=== PATIENT | male | born 1955 | race Caucasian/White ===

== ENCOUNTER → 2018-04-02 | Outpatient (CLI) | payer BC ==
[2018-04-02] MEDS: REGADENOSON 0.4 MG/5 ML DISP.SYRIN. IV (10:00)
== END | disposition home or self-care (01) ==
LOC: NM 08:33
DX: I25.10 Atherosclerotic heart disease of native coronary artery without angina pectoris (principal); E78.00 Pure hypercholesterolemia, unspecified; Z87.891 Personal history of nicotine dependence
CPT/HCPCS: 78452; 93017; 96374; 96375; 96376; A9500; J2785

== ENCOUNTER 2018-05-30 08:04 | Emergency (ER) | payer BC ==
[2018-05-30 08:27] LABS: ADD MAN DIFF? NO
[2018-05-30] MEDS: FAMOTIDINE 20 MG/2 ML VIAL IVP (08:32)
[2018-05-30 08:33] LABS: BASO # 0.1 x10^3/uL (0.0-0.2); BASO % 1 % (0-3); EOS # 0.2 x10^3/uL (0.0-0.7); EOS % 2 % (0-3); HEMATOCRIT 43.6 % (39.0-53.0); HEMOGLOBIN 15.8 g/dL (13.0-17.5); LYMPH # 2.8 x10^3/uL (1.0-4.8); LYMPH % 32 % (24-48); MEAN CORPUSCULAR HEMOGLOBIN 33 pg (25-35); MEAN CORPUSCULAR HGB CONC 36 g/dL (31-37); MEAN CORPUSCULAR VOLUME 91 fL (79-100); MONO # 0.6 x10^3/uL (0.0-1.1); MONO % 7 % (0-9); NEUT # 5.2 x10^3uL (1.8-7.7); NEUT % 58 % (31-73); PLATELET COUNT 234 x10^3/uL (140-400); RED CELL DISTRIBUTION WIDTH 12.4 % (11.5-14.5); WHITE BLOOD COUNT 8.9 x10^3/uL (4.0-11.0)
[2018-05-30] MEDS: methylPREDNISolone SOD SUCC PF 125 MG/2 ML VIAL. IV (08:36)
[2018-05-30] MEDS: diphenhydrAMINE 50 MG/ML VIAL IVP (08:39)
[2018-05-30 08:47] LABS: ANION GAP 8 (6-14); BLOOD UREA NITROGEN 16 mg/dL (8-26); BUN/CREATININE RATIO 16 (6-20); CALCIUM 8.5 mg/dL (8.5-10.1); CARBON DIOXIDE 25 mmol/L (21-32); CHLORIDE 101 mmol/L (98-107); GLUCOSE 102 mg/dL (70-99); POTASSIUM 4.4 mmol/L (3.5-5.1); SODIUM 134 mmol/L (136-145)
[2018-05-30 08:53] LABS: ALBUMIN 3.9 g/dL (3.4-5.0); ALBUMIN/GLOBULIN RATIO 1.1 (1.0-1.7); ALK PHOS 49 U/L (46-116); ALT (SGPT) 12 U/L (16-63); AST (SGOT) 14 U/L (15-37); TOTAL BILIRUBIN 0.4 mg/dL (0.2-1.0); TOTAL PROTEIN 7.5 g/dL (6.4-8.2)
== END 2018-05-30 10:00 | disposition home or self-care (01) ==
LOC: ER 10:00
DX: T78.49XA Other allergy, initial encounter (principal); R22.31 Localized swelling, mass and lump, right upper limb; F41.9 Anxiety disorder, unspecified; F32.9 Major depressive disorder, single episode, unspecified; Z91.09 Other allergy status, other than to drugs and biological substances; W57.XXXA Bitten or stung by nonvenomous insect and other nonvenomous arthropods, initial encounter
CPT/HCPCS: 36415; 80053; 85025; 96374; 96375; 99284; J1200; J2930; S0028

== ENCOUNTER → 2020-08-11 | Outpatient (CLI) | payer BC ==
[2018-05-30 10:00] VITALS: BP 158/85
[~2020-08-11] MED LIST: ALPR0.5T6 PO; ASPI325T8 PO; ATOR40TA59 PO; CITA20TA6 PO; PRAS10TA9 PO; PRED-220 PO; REGADENOSON 0.4 MG/5 ML DISP.SYRIN. IV ONE
--- NOTE | 2020-08-11 14:23 | RAD ---
MR#: [id number] Date of Study: 08/11/2020 Ordering Physician: YULISSA COATS, Referring Physician: MERCY PAGE Tech: KAYLAN Casanova APPROVED REPORT Test Type: Pharmacological Stress Nurse/Tech: Maura Loja R.N. Test Indications: cad Cardiac History: PR, 2 stents, smoker Medications: see ehr Medical History: see ehr Resting ECG: SR Resting Heart Rate: 66 bpm Resting Blood Pressure: 150/89mmHg Pretest Chest Pain: No chest pain Nurse/Tech Notes lungs cta, heart tones regular Consent: The procedure was explained to the patient in lay terms. Informed consent was witnessed. Julius eout was entered into [employer]. History and Stress Test performed by LILIA Gomes, DEEPIKA (R) (N) Pharm. Details Pharmacologic stress testing was performed using 0.4mg per 5ml of regadenoson given intravenously ove r 7-10 seconds. Stress Symptoms No chest pain or symptoms. POST EXERCISE Reason for Termination: Infusion complete Target HR: No Max HR: 87 bpm Max Blood Pressure: 141/88mmHg Chest Pain: No. Arrhythmia: No. ST Change: No. INTERPRETATION Stress EKG Conclusion: Baseline EKG showed sinus rhythm. No ischemic changes at peak stress. No arr hythmias. Imaging Protocol IMAGE PROTOCOL: Rest Tc-99m/stress Tc-99m 1 day Rest: Stress: Viability: Radiopharm.Tc99m NfkihdfxqEk97i Sestamibi Hwey27sXy 33mCi Duration 15min. 10min. Img Date 08/11/2020 08/11/2020 Inj-Img Kdow80bbs. 60min. Rest Admin Site:IV - Right AntecubitalAdministrator:LILIA Gomes ARRT (R)(N) Stress Admin Site: IV - Right AntecubitalAdministrator: LILIA Gomes, ARRT (R)(N) STRESS DATA End Diast. Vol.105.0mlAv. Heart Rate73.0bpm End Syst. Vol.16.0mlCO Index BSA0.0L/min Myocardial Kafq340.0gEject. Gidgbwyh30.0% Stress Rates Pk. Fill Rate3.05EDV/secLVtime Pk. Fill 127.64msec Pk. Empty Rate4.36ESV/secLVtime Pk. Zopxc749.56msec 1/3 Pk. Fill2.00EDV/sec Stress Scores Regional WT0.00Summed WT0.00 Regional WM0.00Summed WM0.00 Study quality was good. Left Ventricular size was Normal at Rest and Stress. Lung uptake was . Left Ventricular ejection fraction is 80%. The rest and stress images show normal perfusion, normal contraction and thickening. LV Perf. Quant 17 Seg. SSS2.00 17 Seg. SRS5.00 17 Seg. SDS0.00 Stress Defect Extent (% LAD)0.00Rest Defect Extent (% LAD)0.00Rev. Defect Extent (% LAD)0.00 Stress Defect Extent (% LCX) 6.30Rest Defect Extent (% LCX)23.80Rev. Defect Extent (% LCX)0.00 Stress Defect Extent (% RCA)0.00Rest Defect Extent (% RCA)5.60Rev. Defect Extent (% RCA)0.00 Stress Defect Extent (% AMADOU)1.10Rest Defect Extent (% AMADOU)7.80Rev. Defect Extent (% AMADOU)0.00 Conclusion 1. Regadenoson cardioisotope stress test did not show any evidence of ischemia or infarct. 2. Normal left ventricular systolic function with ejection fraction calculated at 80%. 3. Low risk for cardiac events. Signed by : Yulissa Coats, Electronically Approved : 08/11/2020 14:23:04
--- NOTE | 2020-08-11 14:44 | CARD ---
MR#: [id number] Date of Study: 08/11/2020 Ordering Physician: YULISSA COATS, Referring Physician: YULISSA COATS Tech: Kristine Zavala RDCS APPROVED REPORT EXAM: Two-dimensional and M-mode echocardiogram with Doppler and color Doppler. Other Information Quality : Good INDICATION Cardiac Disease: CAD RISK FACTORS Smoking 2D DIMENSIONS RVDd2.7 (2.9-3.5cm)Left Atrium(2D)3.5 (1.6-4.0cm) IVSd1.3 (0.7-1.1cm)Aortic Root(2D)3.5 (2.0-3.7cm) LVDd4.4 (3.9-5.9cm)LVOT Diameter2.3 (1.8-2.4cm) PWd1.0 (0.7-1.1cm)LVDs2.7 (2.5-4.0cm) FS (%) 37.8 %SV59.7 ml LVEF(%)60.0 (>50%) Aortic Valve AoV Peak Bart.130.7cm/sAoV VTI26.7cm AO Peak GR.6.8mmHgLVOT Peak Bart.127.1cm/s AO Mean GR.4mmHgAVA (VMAX)4.15cm2 ARA (VTI)4.00cm2 Mitral Valve MV E [place]09.3cm/sMV DECEL TOCV569ks MV A [place]869.9cm/sE/A Ratio0.9 Pulmonary Vein S1 Hvubaxne75.0cm/sD2 Jgjumdyo36.4cm/s LEFT VENTRICLE The left ventricle is normal size. There is mild concentric left ventricular hypertrophy. The left ve ntricular systolic function is normal. The Ejection Fraction is 60-65%. There is normal LV segmental wall motion. Transmitral Doppler flow pattern is Grade I-abnormal relaxation pattern. RIGHT VENTRICLE The right ventricle is normal size. The right ventricular systolic function is normal. ATRIA The left atrium size is normal. The right atrium size is normal. The interatrial septum is intact wit h no evidence for an atrial septal defect or patent foramen ovale as noted on 2-D or Doppler imaging. AORTIC VALVE The aortic valve is calcified but opens well. Doppler and Color Flow revealed trace to mild eccentric aortic regurgitation. There is no significant aortic valvular stenosis. MITRAL VALVE The mitral valve is calcified but opens well. There is no evidence of mitral valve prolapse. There is no mitral valve stenosis. Doppler and Color-flow revealed trace mitral regurgitation. TRICUSPID VALVE The tricuspid valve is normal in structure and function. Doppler and Color Flow revealed no tricuspid valve regurgitation noted. There is no tricuspid valve stenosis. PULMONIC VALVE The pulmonic valve is not well visualized. Doppler and Color Flow revealed no pulmonic valvular regur gitation. There is no pulmonic valvular stenosis. GREAT VESSELS The aortic root is normal in size. The ascending aorta is not well seen. The IVC is normal in size an d collapses >50% with inspiration. PERICARDIAL EFFUSION There is no evidence of significant pericardial effusion. Critical Notification Critical Value: No <Conclusion> The left ventricular systolic function is normal. The Ejection Fraction is 60-65%. There is normal LV segmental wall motion. Transmitral Doppler flow pattern is Grade I-abnormal relaxation pattern. Trace to mild eccentric aortic regurgitation. Trace mitral regurgitation. There is no evidence of significant pericardial effusion. Signed by : Yulissa Coats, Electronically Approved : 08/11/2020 14:43:57
== END | disposition home or self-care (01) ==
LOC: NM 08:22
PROVIDERS: ATTEND Internal Medicine Cardiovascular Disease
DX: I08.0 Rheumatic disorders of both mitral and aortic valves (principal); I25.10 Atherosclerotic heart disease of native coronary artery without angina pectoris; I25.2 Old myocardial infarction; Z87.891 Personal history of nicotine dependence; Z95.5 Presence of coronary angioplasty implant and graft
CPT/HCPCS: 78452; 93017; 93306; A9500; J2785